=== PATIENT | male | born 1935 | race Caucasian/White ===

== ENCOUNTER → 2021-01-08 | Outpatient (CLI) | payer MEDICARE ==
[~2021-01-08] MED LIST: ACET-2065 PO; ATOR10TA9 PO; DICL75TA3 PO; DICLOFENAC PO; FAMO20TA7 PO; LISI-170 PO; LISI5TAB7 PO; MULTIVITAMIN PO; OMEG-172 PO; TAMS-11 PO; TRAMADOL PO
[2021-01-08 11:08] LABS: EOSINOPHILS % (AUTO) 4 % (1-7); LYMPHOCYTES % (AUTO) 28 % (22-44); MEAN CORPUSCULAR HEMOGLOBIN 32.3 pg (27.5-34.5); MEAN CORPUSCULAR HGB CONC 33.9 g/dL (33.2-36.2); MEAN PLATELET VOLUME 7.3 fL (7.4-10.4); MONOCYTES % (AUTO) 13 % (2-9); NEUTROPHILS % (AUTO) 54 % (42-75); PLATELET COUNT 244 x10^3/uL (130-400); RED BLOOD COUNT 4.53 x10^6/uL (4.38-5.82); RED CELL DISTRIBUTION WIDTH 13.9 % (9.4-14.8)
[2021-01-08 11:14] LABS: ALANINE AMINOTRANSFERASE 21 U/L (12-78); ALBUMIN 3.8 g/dL (3.4-5.0); ANION GAP 4 mmol/L (5-15); BASOPHILS % (AUTO) 1 % (0-1); CALCIUM 9.4 mg/dL (8.5-10.1); CHLORIDE 104 mmol/L (98-107); CREATININE 0.98 mg/dL (0.7-1.3); MD NO
[2021-01-08 11:16] LABS: ALKALINE PHOSPHATASE 62 U/L (45-117); BILIRUBIN,TOTAL 0.5 mg/dL (0.2-1.0); TOTAL PROTEIN 6.9 g/dL (6.4-8.2)
== END | disposition home or self-care (01) ==
LOC: STAR 09:21
PROVIDERS: ATTEND Orthopaedic Surgery
DX: Z01.810 Encounter for preprocedural cardiovascular examination (principal); Z01.818 Encounter for other preprocedural examination; M17.11 Unilateral primary osteoarthritis, right knee; M25.561 Pain in right knee; I44.4 Left anterior fascicular block; I25.2 Old myocardial infarction; Z20.822 Contact with and (suspected) exposure to COVID-19
CPT/HCPCS: 36415; 80053; 85025; 87081; 93005; U0003

== ENCOUNTER 2021-01-14 08:23 | Day surgery (SDC) | payer MEDICARE ==
[~2021-01-14] VITALS: Ht 172.7 cm; Wt 77.1 kg
[~2021-01-14 08:23] MED LIST changes: +EPHEDRINE 50 MG/ML, 1ML IVPush PRN; +EPINEPHRINE 1 MG/ML, 1ML ONE; +HYDROmorphone 1 MG/ML, 1ML INJ IVPush PRN; +KETOROLAC 60 MG/2 ML ONE; +LABETALOL 5MG/ML, 20ML IV PRN; +ONDANSETRON 2MG/ML, 2ML IVPush PRN; +PROMETHAZINE 25 MG/ML, 1ML IVPush PRN; +ROPIvacaine/PF 0.2%, 20 ML ONE; +SODIUM CHLORIDE 0.9% 50 ML ONE; +TRANEXAMIC ACID 100 MG/ML, 10ML ONE; +VANCOMYCIN 1,000 MG ONE; +hydrALAzine 20 MG/ML, 1ML IV PRN
[2021-01-14] MEDS ORDERED: BUPIVACAINE/PF 0.5% ONE (09:12)
[2021-01-14] MEDS ORDERED: ASPI81TA45 PO (09:22)
[2021-01-14] MEDS ORDERED: ACET-1600 PO (09:22)
[2021-01-14] MEDS ORDERED: CHLORHEXIDINE 15 ML UDC ONE (09:26)
[2021-01-14] MEDS ORDERED: CHLORHEXIDINE 15 ML UDC PO ONE (09:30)
[2021-01-14] MEDS ORDERED: ACET650S21 PO (09:43)
[2021-01-14 09:44] VITALS: BP 123/82
[2021-01-14] MEDS ORDERED: FENTANYL PF 250 MCG/5ML ONE (10:28)
[2021-01-14] MEDS ORDERED: PROPOFOL 10 MG/ML, 20ML ONE (10:30)
[2021-01-14] MEDS ORDERED: ONDANSETRON 2MG/ML, 2ML ONE (10:30)
[2021-01-14] MEDS ORDERED: OXYcodone 5 MG/5 ML ORAL.SOL UDC PO PRN (10:30)
[2021-01-14] MEDS ORDERED: HYDROcodone/APAP 5/325 TABLET PO PRN (10:30)
[2021-01-14] MEDS ORDERED: CEFAZOLIN PMX 1GM/50ML 50 ML IVPB SCH (10:30)
[2021-01-14] MEDS ORDERED: ONDANSETRON 2MG/ML, 2ML IVPush PRN (10:30)
[2021-01-14] MEDS ORDERED: DIAZEPAM 5 MG TABLET PO PRN (10:30)
[2021-01-14] MEDS ORDERED: PROMETHAZINE 25 MG/ML, 1ML IM PRN (10:30)
[2021-01-14] MEDS ORDERED: DEXAMETHASONE 4 MG/ML, 1ML IVPush SCH (10:30)
[2021-01-14] MEDS ORDERED: ONDANSETRON 4 MG TABLET PO PRN (10:30)
[2021-01-14] MEDS ORDERED: CEFAZOLIN 1,000 MG ONE (10:30)
[2021-01-14] MEDS ORDERED: LACTATED RINGERS 1,000 ML IV SCH (10:30)
[2021-01-14] MEDS ORDERED: KETOROLAC 30 MG/1 ML IV SCH (10:30)
[2021-01-14] MEDS ORDERED: MORPHINE SULFATE 4 MG/ML, 1ML IVPush PRN (10:30)
[2021-01-14] MEDS ORDERED: DEXAMETHASONE 4 MG/ML, 5ML ONE ×2 (10:42)
[2021-01-14] MEDS ORDERED: EPHEDRINE 50 MG/ML, 1ML ONE (11:05)
[2021-01-14] MEDS ORDERED: LIDOCAINE-MPF 2% ,5ML ONE (11:05)
[2021-01-14] MEDS ORDERED: FENTANYL PF 100 MCG/2ML ONE (11:59)
[2021-01-14] MEDS: FENTANYL PF 100 MCG/2ML IV PRN ×4 (12:03→12:47)
[2021-01-14] MEDS ORDERED: OXYcodone 5 MG/5 ML ORAL.SOL UDC ONE ×2 (12:11→12:48)
[2021-01-14] MEDS: OXYcodone 5 MG/5 ML ORAL.SOL UDC PO PRN ×2 (12:14→12:49)
[2021-01-14] MEDS ORDERED: TRANEXAMIC ACID 1,000 MG in SODIUM CHLORIDE 0.9% 100 ML IVPB ONE (12:30)
[2021-01-14] MEDS ORDERED: DOCUSATE 100 MG CAPSULE PO SCH (21:00)
[2021-01-15] MEDS ORDERED: ASPIRIN 81 MG TABLET EC PO SCH ×2 (06:00→18:00)
[2021-01-15] MEDS ORDERED: TAMSULOSIN 0.4 MG CAP.ER.24H PO SCH (09:00)
[2021-01-15] MEDS ORDERED: LISINOPRIL 5 MG TABLET PO SCH (09:00)
== END 2021-01-14 18:10 | disposition home or self-care (01) ==
LOC: OUT 08:23
PROVIDERS: ATTEND Orthopaedic Surgery
DX: M17.11 Unilateral primary osteoarthritis, right knee (principal); M25.561 Pain in right knee; I12.9 Hypertensive chronic kidney disease with stage 1 through stage 4 chronic kidney disease, or unspecified chronic kidney disease; N18.9 Chronic kidney disease, unspecified; E78.5 Hyperlipidemia, unspecified; M21.161 Varus deformity, not elsewhere classified, right knee; Z87.891 Personal history of nicotine dependence; Z79.899 Other long term (current) drug therapy; Z79.82 Long term (current) use of aspirin; Z82.49 Family history of ischemic heart disease and other diseases of the circulatory system
CPT/HCPCS: 27447; 64447; 73560; 97110; 97161; C1713; C1776; J0171; J0690; J1100; J1170; J1885; J2405; J2704; J2795; J3010; J7120; J3370